=== PATIENT | male | born 1960 | race Two or more races ===

== ENCOUNTER 2025-06-12 08:05 | Inpatient (IN) | payer BC, OTHER ==
[2025-06-12] VITALS (15 sets, daily range): BP systolic 89–140; BP diastolic 62–93; PULSE 77–98; RESP 11–20; TEMP 97.3–98.7; O2SAT 13–100
[~2025-06-12] VITALS: Ht 180.3 cm; Wt 97.9 kg
--- NOTE | 2025-06-12 08:38 | DVHINCON2 ---
Date of service: Jun 12, 2025 History of Present Illness 65 yo M seen me in office for sob, found to have new onset afib/flutter and having active chest pain. pt was admitted for ACS rule out and afib management. he was started on doac 1-2 days ago. Past Medical History reviewed Allergies: Coded Allergies: NO KNOWN ALLERGIES (Unverified , 06/12/25) Review of Systems 10 pt ros otherwise negative Vital Signs Vital Signs Date Time Temp Pulse Resp B/P (MAP) Pulse Ox O2 Delivery O2 Flow Rate FiO2 06/12/25 08:12 93 06/12/25 08:11 98.2 16 140/81 97 98.2 Physical Exam nad s1 s2 irregular tachycardic ctab soft nt/nd no edema Assessment afib rvr chest pain r/o acs atrial flutter ckd htn HL obesity Plan/Recommendation recommend admit to hospital start doac amiodarone Wade guided dccv pt agrees to plan possible stress mpi Plan discussed with: Patient CARLA COONEY MD Jun 12, 2025 08:38
--- NOTE | 2025-06-12 08:40 | ED.PDOC ---
HPI Comments 65 year old male PMHx HTN, DM, a-fib, sleep apnea presents to the ED with a chief complaint of chest pain onset today (06/12/25) around 05:00. Patient states he began experiencing palpitations about 6 months ago, began seeing Dr. Wing about 4 months ago, had a heart monitor placed due to HR going from 60- 150. Patient had an appointment with Dr. Wing 3 days ago, medication was changed, advised to go to ED if any symptoms worsened. Patient woke up this morning around 05:00 experiencing chest pain, described as a pressure sensation, radiating to LT arm as well as shortness of breath. Denies nausea, vomiting, diarrhea, abdominal pain, dizziness, fever, chills, cough, cold, congestion, headache, blurred vision. No other symptoms or modifying factors present at this time. Chief Complaint: Chest Pain Time Seen by MD: 08:25 Reviewed Notes: Medications, Allergies Allergies: Coded Allergies: NO KNOWN ALLERGIES (Unverified , 06/12/25) Information Source: Patient, Spouse Mode of Arrival: Ambulatory Severity: Moderate Timing: Hours Duration: Since onset Prehospital treatment: None Location: Chest (L) Radiation: Arm (L) Quality: Pressure Onset: At Rest Cardiac Risk Factors: HTN, Diabetes PE Risk Factors: None Modifying Factors: Nothing Associated Signs and Symptoms: SOB Past Medical History PAST MEDICAL HISTORY: AFIB, DM, HTN Past Medical History (Other): sleep apnea Surgical History: Denies all surgeries Family History Family History: Family hx of heart debra Social History Smoker: Non-Smoker Alcohol: Occasionally Drugs: Denies Drug Use Lives In: Home Constitutional: denies: chills, diaphoresis, fatigue, fever, malaise, sweats, weakness, others EENTM: denies: blurred vision, double vision, ear bleeding, ear discharge, ear drainage, ear pain, ear ringing, eye pain, eye redness, hearing loss, mouth pain, mouth swelling, nasal discharge, nose bleeding, nose congestion, nose pain, photophobia, tearing, throat pain, throat swelling, voice changes, others Respiratory: reports: shortness of breath; denies: cough, hemoptysis, orthopnea, SOB at rest, SOB with excertion, stridor, wheezing, others Cardiovascular: reports: chest pain; denies: dizzy spells, diaphoresis, Dyspnea on exertion, edema, irregular heart beat, left arm pain, lightheadedness, palpitations, PND, syncope, others Gastrointestinal: denies: abdomen distended, abdominal pain, blood streaked bowels, constipated, diarrhea, dysphagia, difficulty swallowing, hematemesis, melena, nausea, poor appetite, poor fluid intake, rectal bleeding, rectal pain, vomiting, others Genitourinary: denies: burning, dysuria, flank pain, frequency, hematuria, incontinence, penile discharge, penile sore, pain, testicle pain, testicle swelling, urgency, others Neurological: denies: dizziness, fainting, headache, left sided numbness, left sided weakness, numbness, paresthesia, pre-existing deficit, right sided num bness, right sided weakness, seizure, speech problems, tingling, tremors, weakness, others Musculoskeletal: reports: others (LT arm pain); denies: back pain, gout, joint pain, joint swelling, muscle pain, muscle stiffness, neck pain Integumetry: denies: bruises, change in color, change in hair/nails, dryness, laceration, lesions, lumps, rash, wounds, others Allergic/Immunocompromised: denies: Difficulty Healing, Frequent Infections, Hives, Itching, others Hematologic/Lymphatic: denies: anemia, blood clots, easy bleeding, easy bruising, swollen glands, others Endocrine: denies: excessive hunger, excessive sweating, excessive thirst, excessive urination, flushing, intolerance to cold, intolerance to heat, unexplained weight gain, unexplained weight loss, others Psychiatric: denies: anxiety, bipolar disorder, depression, hopeless, panic disorder, schizophrenia, sleepless, suicidal, others All Other Systems: Reviewed and Negative Physical Exam General Appearance: Moderate Distress HEENT: Normal ENT Inspection, Pharynx Normal, TMs Normal Neck: Full Range of Motion, Non-Tender, Normal, Normal Inspection Respiratory: Chest Non-Tender, Lungs Clear, No Accessory Muscle Use, No Respiratory Distress, Normal Breath Sounds Cardiovascular: Irregular, No Edema, No JVD, No Murmur, No Gallop Breast Exam: Deferred Gastrointestinal: No Organomegaly, Non Tender, No Pulsatile Mass, Normal Bowel Sounds, Soft Genitalia: Deferred Pelvic: Deferred Rectal: Deferred Extremities: No calf tenderness, Normal capillary refill, Normal inspection, Normal range of motion, Non-tender, No pedal edema Musculoskeletal : Apperance: Normal Neurologic: Alert, judicial reporter II-XII nml as Tested, Motor Weakness, Normal Affect, Normal Mood, No Sensory Deficits Cerebellar Function: Normal Reflexes: Normal Skin: Dry, Pallor, Warm Lymphatic: No Adenopathy EKG EKG : Pulse Rate (adult): 93 [place]: Normal Cardiac Rhythm: Afib ST: Nonsp Was a procedure done? Was a procedure done?: No CP Differential Dx Differential Diagnosis: Angina, CT, Pulmonary Embolus Differential Diagnosis: CHF Differential Diagnosis: Pericarditis X-Ray, Labs, Meds, VS Vital Signs Date Time Temp Pulse Resp B/P (MAP) Pulse Ox O2 Delivery O2 Flow Rate FiO2 06/12/25 08:58 84 06/12/25 08:40 93 06/12/25 08:12 93 06/12/25 08:11 98.2 89 16 140/81 97 98.2 Lab Test 06/12/25 10:20 06/12/25 09:03 Range/Units Troponin I High Sensitivity 8 9 </=54 ng/L White Blood Count 4.2 L 4.4-10.8 10^3/uL Red Blood Count 4.73 4.5-5.90 10^6/uL Hemoglobin 16.6 13.5-17.5 g/dL Hematocrit 46.6 41.0-53.0 % Mean Corpuscular Volume 98.5 80.0-100.0 fL Mean Corpuscular Hemoglobin 35.0 H 28.0-32.0 pg Mean Corpuscular Hemoglobin Concent 35.6 32.0-36.0 g/dL Red Cell Distribution Width 13.0 11.8-14.3 % Platelet Count 129 L 140-450 10^3/uL Mean Platelet Volume 6.5 L 6.9-10.8 fL Neutrophils (%) (Auto) 56.1 37.0-80.0 % Lymphocytes (%) (Auto) 32.6 10.0-50.0 % Monocytes (%) (Auto) 9.6 0.0-12.0 % Eosinophils (%) (Auto) 1.0 0.0-7.0 % Basophils (%) (Auto) 0.7 0.0-2.0 % Neutrophils # (Auto) 2.4 1.6-8.6 10 ^3/uL Lymphocytes # (Auto) 1.4 0.4-5.4 10 ^3/uL Monocytes # (Auto) 0.4 0-1.3 10 ^3/uL Eosinophils # (Auto) 0 0-0.8 10 ^3/uL Basophils # (Auto) 0 0-0.2 10 ^3/uL Nucleated Red Blood Cells 0.1 % Sodium Level 137 136-145 mmol/L Potassium Level 4.1 3.5-5.1 mmol/L Chloride Level 100 98-107 mmol/L Carbon Dioxide Level 27 20-31 mmol/L Anion Gap 10 5-15 Blood Urea Nitrogen Pending Creatinine Pending Glomerular Filtration Rate Calc Pending BUN/Creatinine Ratio Pending Serum Glucose Pending Calcium Level 9.5 8.7-10.4 mg/dL B-Type Natriuretic Peptide 103.95 0-100 pg/mL Current Medications Medications (Trade) Dose Ordered Sig/Reggie Route Start Time Stop Time Status Last Admin Aspirin 162 mg ONCE ONCE PO 06/12/25 08:30 06/12/25 08:31 DC 06/12/25 09:52 PROCEDURE(s): CXRP - CHEST PORTABLE IMPRESSION: No acute disease. Hep-Lock was established The patient was given aspirin 162 mg by mouth The patient's CBC is within normal limits. The BNP is 103.95 The chemistry panel is pending We did speak with Dr. Wing and the patient will be admitted at this time. The patient's troponin level x2 came back as negative The chemistry panel is within normal range At this time, the patient will be admitted Images Reviewed?: Images reviewed and evaluated by mt Time of 1ST Reevaluation: 08:55 Reevaluation 1ST: Unchanged Patient Education/Counseling: Diagnosis, Treatment, Prognosis Family Education/Counseling: Diagnosis, Treatment, Prognosis SEPSIS Sepsis Screen Date sepsis recognized/suspect: Jun 12, 2025 Time Sepsis recognized/suspect: 08 Recent Procedure: No On Antibiotic Therapy: No Respiratory Rate >20: No Heart Rate >90: No Temp<36 C (96.8 F) or >38.3 C: No SBP <90 or MAP <65 mmHG: No New Acute Mental Status Change: No Is the patient on CPAP, BIPAP,: No Physician Orders Electrocardigram (06/12/25 08:21) Electrocardigram (06/12/25 09:21) Chest Portable (06/12/25 08:27) Heplock Iv (06/12/25 08:27) [place] Clerk (06/12/25 08:27) Blood Pressure (06/12/25 08:27) Pulse Oximetry (06/12/25 08:27) Urinalysis (06/12/25 08:27) Echo Wade Complete (06/12/25 08:38) Basic Metabolic Panel (06/12/25 10:14) Allergies (06/12/25 10:45) Code Status (06/12/25 10:45) Oxygen Per Hour (06/12/25 10:45) Condition: Serious (06/12/25 10:45) Bedrest With Bathroom Privileg (06/12/25 10:45) Sequential Compression Device (06/12/25 ) Admit (06/12/25 11:01) Stat Ekg For Chest Pain (06/12/25 11:01) Notify Of Changes From Base (06/12/25 11:01) Jig Box Operator For 24 Hours (06/12/25 11:01) Emergency Dysrhythmia Protocol (06/12/25 11:01) Rhythm Strips Once Every Shift (06/12/25 11:01) Oxygen By Nasal Cannula (06/12/25 11:01) Vital Signs Date Time Temp Pulse Resp B/P (MAP) Pulse Ox O2 Delivery O2 Flow Rate FiO2 06/12/25 08:58 84 06/12/25 08:40 93 06/12/25 08:12 93 06/12/25 08:11 98.2 89 16 140/81 97 98.2 Laboratory Tests Test 06/12/25 09:03 White Blood Count 4.2 10^3/uL (4.4-10.8) L Medications Medications Dose Ordered Sig/Reggie Route Start Time Stop Time Status Last Admin Dose Admin Aspirin 162 mg ONCE ONCE PO 06/12/25 08:30 06/12/25 08:31 DC 06/12/25 09:52 Departure 1 Departure Time of Disposition: 10:14 Impression: Primary Impression: Acute myocardial ischemia Additional Impressions: Atrial fibrillation Qualified Codes: I48.91 - Unspecified atrial fibrillation Acute chest pain Disposition: 09 ADMITTED INPATIENT Admit to: Tele Condition: Fair Critical Care Note Critical Care Time?: Yes (45 min-critical care time only) Stability Stability form required: Yes Unstable for transfer: Telemetry monitoring (Telemetry monitoring required), ED Physician Assesment (Clinical assesment) Heart Score Heart Score: Heart Score Response (Comments) Value History Moderate Suspicious 1 EKG Repolarization Disturb 1 Age 45-64 1 Risk Factors >3 or Hx ASHD 2 Troponin Normal limit 0 Total 5 I personally scribed for ISIAH COVARRUBIAS MD ([email or web address]) on 06/12/25 at 08:40. Electronically submitted by Latha Valenzuela ([email or web address]). I personally scribed for ISIAH COVARRUBIAS MD ([email or web address]) on 06/12/25 at 09:11. Electronically submitted by Latha Valenzuela ([email or web address]). ISIAH COVARRUBIAS MD Jun 12, 2025 08:40
--- NOTE | 2025-06-12 09:03 | DVH ---
CHEST RADIOGRAPH Indication: cp Technique: Single frontal view of the chest was obtained COMPARISON: CHEST TWO VIEWS on DOS: 12/12/21 FINDINGS: Lines and Tubes: None Lungs: Clear Pleura: No effusion. No pneumothorax. Cardiomediastinal contours: Unremarkable Bones: Unremarkable IMPRESSION: No acute disease.
[2025-06-12 09:25] LABS: Hematocrit 46.6 % (41.0-53.0); Hemoglobin 16.6 g/dL (13.5-17.5); Mean Corpuscular Volume 98.5 fL (80.0-100.0); Nucleated Red Blood Cells % 0.1 %
[2025-06-12 09:29] LABS: Mean Corpuscular Hemoglobin 35.0 pg (28.0-32.0)
[2025-06-12] MEDS ORDERED: ACETAMINOPHEN 325 MG TAB PO PRN ×2 (10:45→11:15)
[2025-06-12] MEDS ORDERED: IPRATROPIUM BROM 0.5 MG/2.5ML INH SOL NEB PRN (10:45)
[2025-06-12] MEDS ORDERED: DEXTROSE (50%) 50ML SYRG IV PRN ×2 (10:45→11:15)
[2025-06-12] MEDS ORDERED: DOCUSATE SOD 100 MG CAP PO PRN ×2 (10:45→11:15)
[2025-06-12] MEDS ORDERED: SODIUM CHLORIDE 0.9% 1,000 ML IV SCH (10:45)
[2025-06-12] MEDS ORDERED: ALBUTEROL SULF 2.5 MG/0.5ML(0.5%) NEB SOLN NEB PRN (10:45)
[2025-06-12] MEDS ORDERED: HYDROcodone-ACET 5/325MG TAB PO PRN ×2 (10:45→11:15)
[2025-06-12] MEDS ORDERED: hydrALAZINE HCL 20 MG/ML VL IV PRN ×2 (10:45→11:15)
[2025-06-12] MEDS ORDERED: ONDANSETRON HCL 4 MG/2 ML VIAL IV PRN ×2 (10:45→11:15)
--- NOTE | 2025-06-12 11:02 | DVHHP2 ---
History of Present Illness Reason for Visit: Acute chest pain History of Present Illness The patient is a 65-year-old male with past medical history of AFib, diabetes mellitus, sleep apnea, and hypertension who presented to [facility] ED with complaint of chest pain. Patient reports that he has been experiencing p alpitations about 6 months ago, being followed by cardiology Dr. Wing about 4 months ago, had heart monitor placed due to irregular heart rate. Patient had an appointment with Dr. Wing 3 days ago, medication was changed, advised to go to ED if any symptoms worsened. Patient woke up this morning around 05:00 AM experiencing chest pain, described as pressure sensation, radiating to left arm as well as shortness of breath, getting worse that prompted this visit. Patient was seen and evaluated in the ED, laboratory data shows WBC 4.2, platelets 129, sodium 137, potassium 4.1, BUN 12, creatinine 0.87, GFR 96, glucose 146, sodium 9.5, troponin 9, BNP 103.95, blood pressure 140/81, heart rate 84, temperature 98.2 F, O2 saturation 97% on room air. Chest x-ray show no acute disease. Please see medication orders section in the computer. On my assessment, patient denied chest pain at this moment, no headache, dizziness, diaphoresis, shortness of breaths, no diarrhea, nausea, vomiting, fever, chills. Patient was admitted for further evaluation and medical management. Past Medical History AFIB, DM, HTN, Sleep apnea Past Surgical History Denies all surgeries Family History Reviewed, noncontributory to the management of this case. Past Social History The patient lives at home, denies smoking, alcohol or illicit drugs abuse. Review of Systems Constitutional: Yes: Weakness; No: Fever, Chills, Sweats, Malaise, Other Eyes: No: Pain, Vision change, Conjunctivae inflammation, Eyelid inflammation, Other, Redness ENT: No: Ear pain, Ear discharge, Nose pain, Nose discharge, Nose congestion, Mouth pain, Mouth swelling, Throat pain, Throat swelling, Other Respiratory: Shortness of breath; No: Cough, Dry, SOB with excertion, Wheezing, Hemoptysis, Pleuritic Pain, Sputum, Wheezing, Other Cardiovascular: Chest Pain, Palpitations; No: Orthopnea, Paroxysmal Noc. Dyspnea, Edema, Lt Headedness, Other Gastrointestinal: No: Nausea, Vomiting, Abdominal Pain, Diarrhea, Constipation, Melena, Hematochezia, Other Genitourinary: No Dysuria, No Frequency, No Incontinence, No Hematuria, No Retention, No Other Musculoskeletal: No: other, neck pain, shoulder pain, arm pain, back pain, hand pain, leg pain, foot pain Skin: No: Rash, Lesions, Jaundice, Bruising, Other Neurological: No: Weakness, Numbness, Incoordination, Change in speech, Confusion, Seizures, Other Allergies: Coded Allergies: NO KNOWN ALLERGIES (Unverified , 06/12/25) Medications Current Medications Medications Dose Ordered Sig/Reggie Route Start Time Stop Time Status Last Admin Dose Admin Atorvastatin Calcium 10 mg HS PO 06/12/25 22:00 UNV Atenolol 50 mg DAILY PO 06/13/25 10:00 UNV Hydralazine HCl 10 mg Q6HP PRN IV 06/12/25 10:45 UNV Albuterol 2.5 mg Q4HPRN PRN NEB 06/12/25 10:45 UNV Ipratropium Eldon 0.5 mg Q4HPRN PRN NEB 06/12/25 10:45 UNV Amlodipine Besylate 5 mg DAILY PO 06/13/25 10:00 UNV Diagnostic Test (Pha) 1 strip ACHS 06/12/25 11:30 UNV Insulin Human Regular HS SC 06/12/25 22:00 UNV Insulin Human Regular AC SC 06/12/25 11:30 UNV Dextrose 50 ml UD PRN IV 06/12/25 10:45 UNV Sodium Chloride 1,000 ml @ 60 mls/hr [id number] IV 06/12/25 10:45 UNV Acetaminophen/ Hydrocodone Bitart 1 tab Q4HP PRN PO 06/12/25 10:45 UNV Ondansetron HCl 4 mg Q4HP PRN IV 06/12/25 10:45 UNV Docusate Sodium 100 mg BIDPRN PRN PO 06/12/25 10:45 UNV Acetaminophen 650 mg Q6HP PRN PO 06/12/25 10:45 UNV Apixaban 5 mg BID PO 06/12/25 22:00 UNV Exam Vital Signs Vital Signs Date Time Temp Pulse Resp B/P (MAP) Pulse Ox O2 Delivery O2 Flow Rate FiO2 06/12/25 08:58 84 10/13/25 08:11 98.2 16 140/81 97 98.2 General Appearance: Alert, Oriented X3, Cooperative, No acute distress HEENT: Atraumatic, PERRLA, EOMI, Mucous membr. moist/pink Respiratory: Normal air movement Cardiovascular: Normal S1, Normal S2, No murmurs, Other (Irregular rate) Abdominal: Normal bowel sounds, Soft, No tenderness, No hepatospenomegaly, No masses Extremities: No clubbing, No cyanosis, No edema, Normal pulses, No tenderness/swelling Skin: No rashes, No breakdown, No significant lesion Neuro: Normal speech, Normal tone, Sensation intact, Cranial nerves 3-12 NL, Reflexes 2+, Other (Weakness) Psych/Mental Status: Mental status NL, Mood NL Labs/Xrays Labs Test 06/12/25 10:20 06/12/25 09:03 Range/Units White Blood Count 4.2 L 4.4-10.8 10^3/uL Red Blood Count 4.73 4.5-5.90 10^6/uL Hemoglobin 16.6 13.5-17.5 g/dL Hematocrit 46.6 41.0-53.0 % Mean Corpuscular Volume 98.5 80.0-100.0 fL Mean Corpuscular Hemoglobin 35.0 H 28.0-32.0 pg Mean Corpuscular Hemoglobin Concent 35.6 32.0-36.0 g/dL Red Cell Distribution Width 13.0 11.8-14.3 % Platelet Count 129 L 140-450 10^3/uL Mean Platelet Volume 6.5 L 6.9-10.8 fL Neutrophils (%) (Auto) 56.1 37.0-80.0 % Lymphocytes (%) (Auto) 32.6 10.0-50.0 % Monocytes (%) (Auto) 9.6 0.0-12.0 % Eosinophils (%) (Auto) 1.0 0.0-7.0 % Basophils (%) (Auto) 0.7 0.0-2.0 % Neutrophils # (Auto) 2.4 1.6-8.6 10 ^3/uL Lymphocytes # (Auto) 1.4 0.4-5.4 10 ^3/uL Monocytes # (Auto) 0.4 0-1.3 10 ^3/uL Eosinophils # (Auto) 0 0-0.8 10 ^3/uL Basophils # (Auto) 0 0-0.2 10 ^3/uL Nucleated Red Blood Cells 0.1 % B-Type Natriuretic Peptide 103.95 0-100 pg/mL PATIENT: LEXUS OCONNORACCT: [id number] UNIT: [id number] : 1960 LOC: ER ROOM / BED: / AGE / SEX: 65 / M ADM STATUS: REG ER SERVICE 6 ORDERING PHYSICIAN: ISIAH COVARRUBIAS MD PROCEDURE(s): CXRP - CHEST PORTABLE REASON: cp ORDER NUMBER(s): [id number], ACCESSION NUMBER(s): [id number] CHEST RADIOGRAPH Indication: cp Technique: Single frontal view of the chest was obtained COMPARISON: CHEST TWO VIEWS on DOS: 12/12/21 FINDINGS: Lines and Tubes: None Lungs: Clear Pleura: No effusion. No pneumothorax. Cardiomediastinal contours: Unremarkable Bones: Unremarkable IMPRESSION: No acute disease. SEPSIS Sepsis Screen Date sepsis recognized/suspect: Jun 12, 2025 Time Sepsis recognized/suspect: 08 Recent Procedure: No On Antibiotic Therapy: No Respiratory Rate >20: No Heart Rate >90: No Temp<36 C (96.8 F) or >38.3 C: No SBP <90 or MAP <65 mmHG: No New Acute Mental Status Change: No Is the patient on CPAP, BIPAP,: No Physician Orders Electrocardigram (06/12/25 08:21) Electrocardigram (06/12/25 09:21) Electrocardigram (06/12/25 11:21) Troponin-I Hs (06/12/25 09:24) Troponin-I Hs (06/12/25 11:24) Chest Portable (06/12/25 08:27) Heplock Iv (06/12/25 08:27) [place]accarat Manager (06/12/25 08:27) Blood Pressure (06/12/25 08:27) Pulse Oximetry (06/12/25 08:27) Urinalysis (06/12/25 08:27) Echo Wade Complete (06/12/25 08:38) Basic Metabolic Panel (06/12/25 10:14) [facility]Diabetes (06/12/25 Lunch) Atorvastatin (Lipitor) (06/12/25 22:00) Atenolol Tablet (Tenormin Tablet) (06/13/25 10:00) Hydralazine Injection (Apresoline Inject (06/12/25 10:45) Albuterol Medneb (Ventolin Medneb) (06/12/25 10:45) Ipratropium Medneb (Atrovent Medneb) (06/12/25 10:45) Amlodipine Tablet (Norvasc Tablet) (06/13/25 10:00) Glucose Blood (Accu-Chek Comfort Curve T (06/12/25 11:30) Insulin R (Human) (Insulin R) (06/12/25 22:00) Insulin R (Human) (Insulin R) (06/12/25 11:30) Dextrose 50% Syringe (06/12/25 10:45) Allergies (06/12/25 10:45) Code Status (06/12/25 10:45) Sodium Chloride 0.9% (06/12/25 10:45) Oxygen Per Hour (06/12/25 10:45) Hydrocodone-Acet 5/325mg Tab ([place]on 5/32 (06/12/25 10:45) Ondansetron Hcl (Zofran) (06/12/25 10:45) Docusate Sodium Capsule (Colace Capsule) (06/12/25 10:45) Complete Blood Count (06/13/25 04:00) Comprehensive Metabolic Panel (06/13/25 04:00) Condition: Serious (06/12/25 10:45) Acetaminophen Tablet (Tylenol Tablet) (06/12/25 10:45) Bedrest With Bathroom Privileg (06/12/25 10:45) Sequential Compression Device (06/12/25 ) Apixaban (Eliquis) (06/12/25 22:00) Vital Signs Date Time Temp Pulse Resp B/P (MAP) Pulse Ox O2 Delivery O2 Flow Rate FiO2 06/12/25 08:58 84 06/12/25 08:40 93 06/12/25 08:12 93 06/12/25 08:11 98.2 89 16 140/81 97 98.2 Laboratory Tests Test 06/12/25 09:03 White Blood Count 4.2 10^3/uL (4.4-10.8) L Medications Medications Dose Ordered Sig/Reggie Route Start Time Stop Time Status Last Admin Dose Admin Aspirin 162 mg ONCE ONCE PO 06/12/25 08:30 06/12/25 08:31 DC 06/12/25 09:52 162 MG Assessment/Plan Assessment/Plan Acute chest pain Acute myocardial ischemia Atrial fibrillation Unspecified atrial fibrillation Plan 1. Admit to telemetry unit 2. Breathing treatment 3. Pain control management 4. Management of fluids and electrolytes 5. Consultation for hospitalist 6. Diagnostic tests chest x-ray 7. DVT prophylaxis-on Eliquis 8. Repeat labs CBC, CMP in a.m. 9. Continue with current medical management 10. Treatment plan discussed with patient and RN. Patient verbalized understanding. Plan discussed with: Patient, Other (RN) My Orders Orders - CHELSEY PEARSON DNP Procedure Category Date Status Time Consistent DIET 06/12/25 Transmitted Carb(Ccho)Diabetes Lunch Atorvastatin (Lipitor) PHA 06/12/25 Logged 22:00 Atenolol Tablet PHA 06/13/25 Logged (Tenormin Tablet) 10:00 Hydralazine Injection PHA 06/12/25 Logged (Apresoline Inject 10:45 Albuterol Medneb PHA 06/12/25 Logged (Ventolin Medneb) 10:45 Ipratropium Medneb PHA 06/12/25 Logged (Atrovent Medneb) 10:45 Amlodipine Tablet PHA 06/13/25 Logged (Norvasc Tablet) 10:00 Glucose Blood PHA 06/12/25 Logged (Accu-Chek Comfort 11:30 Insulin R (Human) PHA 06/12/25 Logged (Insulin R) 22:00 Insulin R (Human) PHA 06/12/25 Logged (Insulin R) 11:30 Dextrose 50% Syringe PHA 06/12/25 Logged 10:45 Allergies CHRISTA 06/12/25 In Process 10:45 Code Status CODE 06/12/25 Transmitted 10:45 Sodium Chloride 0.9% PHA 06/12/25 Logged 10:45 Oxygen Per Hour RT 06/12/25 Transmitted 10:45 Hydrocodone-Acet PHA 06/12/25 Logged 5/325mg Tab (Sheldon 10:45 Ondansetron Hcl PHA 06/12/25 Logged (Zofran) 10:45 Docusate Sodium PHA 06/12/25 Logged Capsule (Colace 10:45 Complete Blood Count LAB 06/13/25 Verified 04:00 Comprehensive LAB 06/13/25 Verified Metabolic Panel 04:00 Condition: Serious CHRISTA 06/12/25 In Process 10:45 Acetaminophen Tablet PHA 06/12/25 Logged (Tylenol Tablet) 10:45 Bedrest With Bathroom CHRISTA 06/12/25 In Process Privileg 10:45 Sequential CHRISTA 06/12/25 In Process Compression Device Apixaban (Eliquis) PHA 06/12/25 Logged 22:00 Problem List: (1) Acute chest pain (2) Acute myocardial ischemia (3) Atrial fibrillation (4) Unspecified atrial fibrillation Date of Service: Jun 12, 2025 Billing Provider: CHELSEY PEARSON DNP Common Visit Codes: [id number] INP/OBS CARE (HIGH) CHELSEY PEARSON DNP Jun 12, 2025 11:02
[2025-06-12 11:04] LABS: Chloride 100 mmol/L (98-107); Potassium 4.1 mmol/L (3.5-5.1); Sodium 137 mmol/L (136-145)
[2025-06-12 11:05] LABS: Anion Gap 10 (5-15); Carbon Dioxide 27 mmol/L (20-31)
[2025-06-12 11:06] LABS: Calcium 9.5 mg/dL (8.7-10.4)
[2025-06-12 11:11] LABS: BUN/Creatinine Ratio 13.8 (10.0-20.0); Blood Urea Nitrogen 12 mg/dL (9-23)
[2025-06-12 11:12] LABS: Glucose 146 mg/dL (74-106)
[2025-06-12] MEDS ORDERED: MORPHINE SULFATE INJ 2 MG/ml SYRG IV PRN ×2 (11:15)
[2025-06-12] MEDS ORDERED: NITROGLYCERIN 0.4 MG SL TAB SL PRN ×2 (11:15)
[2025-06-12] MEDS ORDERED: InsuLIN REG 1unit/0.01ml Soln (100units/ml) SC SCH ×2 (11:30→22:00)
[2025-06-12] MEDS: ACCU-CHEK COMFORT CURVE STRIP VI SCH (11:30)
[2025-06-12] MEDS: InsuLIN REG 1unit/0.01ml Soln (100units/ml) SC SCH ×2 (11:30→21:50)
[2025-06-12] MEDS ORDERED: ACCU-CHEK COMFORT CURVE STRIP VI SCH (11:30)
[2025-06-12] MEDS: ENOXAPARIN SOD 100 MG/1 ML SYRINGE SC ONE (12:44)
[2025-06-12] MEDS: fentaNYL CITRATE 100 MCG/2 ML VL IV ONE (13:17)
[2025-06-12] MEDS: MIDAZOLAM HCL 2MG/2ML 2ml VIAL (1mg/ml) IV ONE (13:17)
[2025-06-12] MEDS: LIDOCAINE VISCOUS 2% 15ML UD PO ONE (13:17)
--- NOTE | 2025-06-12 13:25 | DVHOP2 ---
Operative Report Operative Report CARDIAC STOCKROOM COORDINATOR PROCEDURE REPORT [place], [place] Date of Service: 06/12/25 Geotechnical Laboratory Technician: Carla Cooney MD PROCEDURES PERFORMED: trans esophageal echocardiogram, conscious sedation <15 mins, doppler assesment complete MARY, DC cardioversion PREOPERATIVE DIAGNOSES: AFib POSTOP DIAGNOSIS: SR DESCRIPTION OF PROCEDURE: The patient or appropriate family signed informed consent understanding the risks, benefits and alternatives of the procedure, they wished to proceed. The patient was brought to the cardiac cleaning laborer in n.p.o. state. the patient was given 15 ml of oral viscous lidocaine. the patient was placed in a left lateral decubitus position with bite block in mouth. NExt conscious sedation was administered per cleaning laborer protocol with _2 _ mg of versed and __75_ mcg of fentanyl. Next a MARY probe was advanced to the mid esophagus with ease and multiple planar images obtained. At the completion of the procedure , probe was removed and there were no immediate complications. FINDINGS: Left Ventricle: Normal LV size and severe dysfunction LVEF estimated at 30% Right Ventricle: RV enlarged mild Left atrium: enlarged, Right atrium: normal Left atrial appendage: no thrombus noted, decreased velocity on PW monitoring Aortic valve: trileaflet valve, no severe or AI Mitral Valve: structurally normal, mild mitral regurg, no MS Tricuspid Valve: mild tricuspid regurgitaiton, no TS Pulmonic Valve: structurally normal, no severe PI or PS Interatrial septum: negative color flow for R to L shunt Ascending aorta: no severe plaquing Next we sync'ed to 200 J and 1 shock delivered with successful restorationist of Normal Sinus rhythm. CONCLUSIONS: 1. Successful MARY guided DCCV PLAN: cont doac cont amiodarone for now CARLA COONEY MD Jun 12, 2025 13:25
[2025-06-12] MEDS: SODIUM CHLORIDE 0.9% 1,000 ML IV SCH (14:10)
--- NOTE | 2025-06-12 19:59 | ECG ---
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
[2025-06-12] MEDS ORDERED: ZINC50TA7 PO (20:29)
[2025-06-12] MEDS ORDERED: VITATAB20 OR (20:29)
[2025-06-12] MEDS ORDERED: OMEG-20 PO (20:29)
[2025-06-12] MEDS ORDERED: AMLO1TAB21 PO (20:29)
[2025-06-12] MEDS ORDERED: SITA100T7 PO (20:29)
[2025-06-12] MEDS ORDERED: PANT1INJ3 PO (20:29)
[2025-06-12] MEDS ORDERED: ATE50T PO (20:29)
[2025-06-12] MEDS ORDERED: PHYT100T PO (20:29)
[2025-06-12] MEDS: BUDESONIDE (INHALATION) 0.5 MG/2 ML NEB NEB SCH (20:37)
[2025-06-12] MEDS: IPRATROPIUM BROM 0.5 MG/2.5ML INH SOL NEB PRN (20:37)
[2025-06-12] MEDS: ALBUTEROL SULF 2.5 MG/0.5ML(0.5%) NEB SOLN NEB PRN (20:37)
[2025-06-12] MEDS: ATORVASTATIN 20 MG TAB PO SCH (21:50)
[2025-06-12] MEDS: APIXABAN 5 MG TAB PO SCH (21:50)
[2025-06-12] MEDS: AMIODARONE HCL 200 MG TAB PO SCH (21:50)
[2025-06-12] MEDS ORDERED: APIXABAN 5 MG TAB PO SCH (22:00)
[2025-06-12] MEDS ORDERED: ATORVASTATIN 20 MG TAB PO SCH (22:00)
[2025-06-13] VITALS (8 sets, daily range): BP systolic 111–157; BP diastolic 65–91; PULSE 75–87; RESP 16–18; TEMP 36.4; O2SAT 95–100
[2025-06-13] MEDS ORDERED: REGADENOSON 0.4 MG/5 ML SYRG IV ONE (09:23)
[2025-06-13] MEDS: REGADENOSON 0.4 MG/5 ML SYRG IV ONE (09:34)
[2025-06-13] MEDS ORDERED: ATENOLOL 25 MG TAB PO SCH (10:00)
[2025-06-13] MEDS: ATENOLOL 25 MG TAB PO SCH (11:54)
--- NOTE | 2025-06-13 11:58 | DVHSR ---
APPROVED REPORT Exam: Nuclear Stress Test BMI: 0 Stress Test Details HR Max Heart Rate (APMHR): 156.853409 bpm Target HR (85% APMHR): 132.344431 bpm BP ECG Stress ECG Conclusion lvef 29% dilated LV moderate inferior infarct noted NM EXAM: Myocardial Perfusion REST/STRESS Imaging Protocol: Rest Tc-99m/Stress Tc-99m 1 day Resting Data Rest SPECT myocardial perfusion imaging was performed in supine position 60 minutes following the int ravenous injection of 11.2 mCi of Tc-99m Sestamibi. Time of rest injection: 07:43 Date: 06/13/2025 Time of rest imagin:43 Date: 06/13/2025 Pharmacologic Stress Pharmacologic stress test was performed by injecting Regadenoson 0.4 mg IV push followed by the intra venous injection of 31.4 mCi of Tc-99m Sestamibi. Time of stress injection: 09:35 Date: 06/13/2025 Time of stress imagin:35 Date: 06/13/2025 Administration Route: IV Administration Site: Left Arm Gated Stress SPECT was performed 60 minutes after stress injection. The images were gated to evaluate regional wall motion and calculate left ventricular ejection fracti on. Stress only was performed in the Supine position. Nuclear Conclusion Nuclear Findings: negative for ischemia lvef 29% dilated LV moderate inferior infarct noted
--- NOTE | 2025-06-13 12:09 | DVHPN2 ---
Progress Note Date Seen: Jun 13, 2025 Medical Necessity Reason Pt with a Central, PICC or Fol: No Objective vital signs Vital Sign Date Time Temp Pulse Resp B/P (MAP) Pulse Ox O2 Delivery O2 Flow Rate FiO2 06/13/25 11:54 79 132/84 06/13/25 09:00 97.6 18 95 97.6 06/13/25 05:46 Nasal Cannula* 3 32 Total Intake and Output 06/12/25 06/12/25 06/13/25 15:00 23:00 07:00 Intake Total 40 ml 240 ml 600 ml Balance 40 ml 240 ml 600 ml medications Current Medications Medications Dose Ordered Sig/Reggie Route Start Time Stop Time Status Last Admin Dose Admin Ipratropium [place] 0.5 mg Q4HPRN PRN NEB 06/12/25 11:15 06/13/25 05:46 0.5 MG Insulin Human Regular HS SC 06/12/25 22:00 06/12/25 21:50 4 UNITS Insulin Human Regular AC SC 06/12/25 11:30 06/13/25 06:11 3 UNITS Dextrose 50 ml UD PRN IV 06/12/25 11:15 Ondansetron HCl 4 mg Q4HP PRN IV 06/12/25 11:15 Morphine Sulfate 2 mg Q30M PRN IV 06/12/25 11:15 Sodium Chloride 1,000 ml @ 60 mls/hr [id number] IV 06/12/25 11:15 06/13/25 04:04 60 MLS/HR Atorvastatin Calcium 10 mg HS PO 06/12/25 22:00 06/12/25 21:50 10 MG Atenolol 50 mg DAILY PO 06/13/25 10:00 06/13/25 11:54 50 MG Hydralazine HCl 10 mg Q6HP PRN IV 06/12/25 11:15 Albuterol 2.5 mg Q4HPRN PRN NEB 06/12/25 11:15 06/13/25 05:46 2.5 MG Amlodipine Besylate 5 mg DAILY PO 06/13/25 10:00 06/13/25 11:53 5 MG Acetaminophen/ Hydrocodone Bitart 1 tab Q4HP PRN PO 06/12/25 11:15 Docusate Sodium 100 mg BIDPRN PRN PO 06/12/25 11:15 Acetaminophen 650 mg Q6HP PRN PO 06/12/25 11:15 Apixaban 5 mg BID PO 06/12/25 22:00 06/13/25 11:53 5 MG Nitroglycerin 0.4 mg Q5MINP PRN SL 06/12/25 11:15 Diagnostic Test (Pha) 1 strip ACHS 06/12/25 11:30 06/13/25 06:12 1 STRIP Budesonide 0.5 mg BID NEB 06/12/25 22:00 06/13/25 05:46 0.5 MG Amiodarone HCl 400 mg Q12HR PO 06/12/25 22:00 06/13/25 11:52 400 MG Examination: GENERAL:Abnormal, HEENT:Abnormal, LUNGS:Abnormal, CVS:Abnormal, ABDOMEN:Abnormal laboratory and microbiology Laboratory Tests 06/12/25 09:03 Test 06/12/25 09:03 Range/Units Serum Glucose 146 H 74-106 mg/dL Problem List/Assessment/Plan Problem List/Assessment/Plan atrial flutter---> SR inferior infarct severe chf cv cleared for dc home eliquis 5 mg po bid atenolol amiodarone add entresto for HF gdmt outpt fu Plan discussed with: Patient My Orders My Orders Orders - CARLA COONEY MD Procedure Category Date Status Time Amiodarone Tablet PHA 06/12/25 In Process (Cordarone Tablet) 22:00 Electrocardigram EKG 06/12/25 Logged 14:00 Consistent DIET 06/12/25 Transmitted Carb(Ccho)Diabetes Dinner Cardiolite Multiple NM 06/13/25 Taken 13:25 Date of Service: Jun 13, 2025 Billing Provider: CARLA COONEY MD Common Visit Codes: NOT BILLABLE CARLA COONEY MD Jun 13, 2025 12:09
--- NOTE | 2025-06-13 12:33 | DVHPN2 ---
Reviewed: Care Plan, H&P, Labs, Medications, Previous Orders, Radiology Changes from previous H/P or p: No Changes Eyes: No Pain, No Vision change, No Conjunctivae inflammation, No Eyelid inflammation, No Other, No Redness ENT: No Ear pain, No Ear discharge, No Nose pain, No Nose discharge, No Nose congestion, No Mouth pain, No Mouth swelling, No Throat pain, No Throat swelling, No Other Cardiovascular: Chest Pain, Palpitations; No Orthopnea, No Paroxysmal Noc. Dyspnea, No Edema, No Lt Headedness, No Other Respiratory: No Cough, No Dry; Shortness of breath; No SOB with excertion, No Wheezing, No Hemoptysis, No Pleuritic Pain, No Sputum, No Other Gastrointestinal: No Nausea, No Vomiting, No Abdominal Pain, No Diarrhea, No Constipation, No Melena, No Hematochezia, No Other Genitourinary: No Dysuria, No Frequency, No Incontinence, No Hematuria, No Retention, No Other Musculoskeletal: No other, No neck pain, No shoulder pain, No arm pain, No back pain, No hand pain, No leg pain, No foot pain Skin: No Rash, No Lesions, No Jaundice, No Bruising, No Other Objective Vitals Vital Signs Date Time Temp Pulse Resp B/P (MAP) Pulse Ox O2 Delivery O2 Flow Rate FiO2 06/13/25 11:54 79 132/84 06/13/25 10:00 95 Nasal Cannula 3.0 06/13/25 10:00 32 06/13/25 09:00 97.6 18 97.6 Intake/Output Intake and Output 06/13/25 07:00 Intake Total 880 ml Balance 880 ml Intake Oral 600 ml IV Total 280 ml # Voids 3 Medications Current Medications Medications Dose Ordered Sig/Reggie Route Start Time Stop Time Status Last Admin Dose Admin Ipratropium [place] 0.5 mg Q4HPRN PRN NEB 06/12/25 11:15 06/13/25 05:46 0.5 MG Insulin Human Regular HS SC 06/12/25 22:00 06/12/25 21:50 4 UNITS Insulin Human Regular AC SC 06/12/25 11:30 06/13/25 06:11 3 UNITS Dextrose 50 ml UD PRN IV 06/12/25 11:15 Ondansetron HCl 4 mg Q4HP PRN IV 06/12/25 11:15 Morphine Sulfate 2 mg Q30M PRN IV 06/12/25 11:15 Sodium Chloride 1,000 ml @ 60 mls/hr [id number] IV 06/12/25 11:15 06/13/25 04:04 60 MLS/HR Atorvastatin Calcium 10 mg HS PO 06/12/25 22:00 06/12/25 21:50 10 MG Atenolol 50 mg DAILY PO 06/13/25 10:00 06/13/25 11:54 50 MG Hydralazine HCl 10 mg Q6HP PRN IV 06/12/25 11:15 Albuterol 2.5 mg Q4HPRN PRN NEB 06/12/25 11:15 06/13/25 05:46 2.5 MG Amlodipine Besylate 5 mg DAILY PO 06/13/25 10:00 06/13/25 11:53 5 MG Acetaminophen/ Hydrocodone Bitart 1 tab Q4HP PRN PO 06/12/25 11:15 Docusate Sodium 100 mg BIDPRN PRN PO 06/12/25 11:15 Acetaminophen 650 mg Q6HP PRN PO 06/12/25 11:15 Apixaban 5 mg BID PO 06/12/25 22:00 06/13/25 11:53 5 MG Nitroglycerin 0.4 mg Q5MINP PRN SL 06/12/25 11:15 Diagnostic Test (Pha) 1 strip ACHS 06/12/25 11:30 06/13/25 06:12 1 STRIP Budesonide 0.5 mg BID NEB 06/12/25 22:00 06/13/25 05:46 0.5 MG Amiodarone HCl 400 mg Q12HR PO 06/12/25 22:00 06/13/25 11:52 400 MG Laboratory Results Laboratory Tests 06/12/25 09:03 Labs and/or images reviewed: Labs reviewed by me, Image(s) reviewed by me Assessment/Plan Assessment/Plan afib rvr status post cardioversion by MARY by Dr. Wing; continue Eliquis atenolol amiodarone Entresto chest pain r/o acs atrial flutter ckd htn HL Obesity Troponin negative times x 3 Patient cleared for discharge by Cardiology Plan discussed with: Patient Date of Service: Jun 13, 2025 Billing Provider: VIOLA VIRGEN MD Common Visit Codes: [id number] INP/OBS CARE(HIGH) VIOLA VIRGEN MD Jun 13, 2025 12:33
[2025-06-13] MEDS ORDERED: AMIO200T33 PO (12:36)
[2025-06-13] MEDS ORDERED: APIX5TAB PO (12:36)
[2025-06-13] MEDS ORDERED: SACU1TAB PO (12:37)
--- NOTE | 2025-06-13 12:41 | DVHDS2 ---
Discharge Summary Date of Admission Jun 12, 2025 at 11:01 Date of Discharge: Jun 13, 2025 Admitting Diagnosis Chest pain Wounds: Wade Labs/Diagnostic Data: Laboratory Results Test 06/13/25 12:18 06/12/25 10:20 06/12/25 09:03 POC Glucose 214 mg/dl (70-106) Troponin I High Sensitivity 8 ng/L (</=54) White Blood Count 4.2 10^3/uL (4.4-10.8) Red Blood Count 4.73 10^6/uL (4.5-5.90) Hemoglobin 16.6 g/dL (13.5-17.5) Hematocrit 46.6 % (41.0-53.0) Mean Corpuscular Volume 98.5 fL (80.0-100.0) Mean Corpuscular Hemoglobin 35.0 pg (28.0-32.0) Mean Corpuscular Hemoglobin Concent 35.6 g/dL (32.0-36.0) Red Cell Distribution Width 13.0 % (11.8-14.3) Platelet Count 129 10^3/uL (140-450) Mean Platelet Volume 6.5 fL (6.9-10.8) Neutrophils (%) (Auto) 56.1 % (37.0-80.0) Lymphocytes (%) (Auto) 32.6 % (10.0-50.0) Monocytes (%) (Auto) 9.6 % (0.0-12.0) Eosinophils (%) (Auto) 1.0 % (0.0-7.0) Basophils (%) (Auto) 0.7 % (0.0-2.0) Neutrophils # (Auto) 2.4 10 ^3/uL (1.6-8.6) Lymphocytes # (Auto) 1.4 10 ^3/uL (0.4-5.4) Monocytes # (Auto) 0.4 10 ^3/uL (0-1.3) Eosinophils # (Auto) 0 10 ^3/uL (0-0.8) Basophils # (Auto) 0 10 ^3/uL (0-0.2) Nucleated Red Blood Cells 0.1 % Sodium Level 137 mmol/L (136-145) Potassium Level 4.1 mmol/L (3.5-5.1) Chloride Level 100 mmol/L (98-107) Carbon Dioxide Level 27 mmol/L (20-31) Anion Gap 10 (5-15) Blood Urea Nitrogen 12 mg/dL (9-23) Creatinine 0.87 mg/dL (0.700-1.30) Glomerular Filtration Rate Calc 96 mL/min (>90) BUN/Creatinine Ratio 13.8 (10.0-20.0) Serum Glucose 146 mg/dL (74-106) Calcium Level 9.5 mg/dL (8.7-10.4) B-Type Natriuretic Peptide 103.95 pg/mL (0-100) Other Laboratory Tests 06/12/25 09:03 Brief Hx & Hospital Course: 65-year-old male with a history of atrial fibrillation CKD hypertension hypercholesterolemia obesity came in for chest pain and palpitations found to have atrial fibrillation with a RVR underwent cardioversion by senior financial Dr. Wing by WADE troponin negative patient feels better treated with the atenolol amiodarone Entresto and amlodipine patient's vital signs are stable cleared for discharge by senior financial discharged home. Prescription for Katie Calderon one Eliquis and amiodarone transmitted to pharmacy We will Follow up with his primary Dr and Dr. Wing Consults/Reason for consult Cardiology Dr. Wing Operations or Procedures Cardioversion by WADE Condition at Discharge: Fair Final Diagnosis/Problems List afib rvr status post successful cardioversion by WADE by Dr. Wing, placed on Eliquis and amiodarone and atenolol chest pain r/o acs atrial flutter ckd htn HL obesity Discharge Disposition: Home Discharge Instruct/Medications Diet: Cardiac 2g Na,low cholest Activity: Light activity Follow Up/Referral: Resume all previous home medications Use new medications as prescribed Follow up with the primary Dr and Dr. Wing in two weeks Medications: Entresto amiodarone Eliquis Transmitted to [facility] pharmacy Scheduled Amiodarone Hcl (Amiodarone Hcl), 200 MG PO BID Amlodipine Besylate (Amlodipine Besylate), 1 TAB PO DAILY, (Reported) Apixaban Base (Eliquis), 5 MG PO BID Atenolol (Tenormin Tablet), 1 TAB PO DAILY, (Reported) Sacubitril-Valsartan (Entresto 24-26 mg), 1 TAB PO BID Sitagliptin Phosphate (Januvia), 1 TAB PO DAILY, (Reported) Miscellaneous Medications [place]-3 Fatty Acids (Fish Oil), 1,000 MG PO, (Reported) Pantoprazole Sodium (Pantoprazole Sodium), 40 MG PO, (Reported) Phytonadione (Vitamin K), 1,000 MCG PO, (Reported) Vitamins A & D (Vitamin A & D), 1 OR, (Reported) Zinc Gluconate (Zinc), 50 MG PO, (Reported) 39 (Time taken for discharge summary 39 minutes) Discharge Statement: "Patient was advised to return to the ER or call 911 if any headaches, dizziness, shortness of breath, chest pain, abdominal pain, bleeding, fevers, or worsening of medical condition. Patient was counseled about treatment plan, medications, possible side effects, patientverbalized understanding. All questions were answered to the best of my ability. This discharge took greater then 30 minutes in planning, reviewing documentation, counseling the patient, and discussing with other team members." ASSESSMENT ASSESSMENT Hospital Course Improved Assessment afib rvr status post successful cardioversion by WADE by Dr. Wing, placed on Eliquis and amiodarone and atenolol chest pain r/o acs atrial flutter ckd htn HL obesity Date of Service: Jun 13, 2025 Billing Provider: VIOLA VIRGEN MD Common Visit Codes: 27128-FQL/OBS DISCH DAY >30min VIOLA VIRGEN MD Jun 13, 2025 12:41
--- NOTE | 2025-06-14 09:08 | ECG ---
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
--- NOTE | 2025-06-14 09:09 | ECG ---
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
== END 2025-06-13 15:39 | disposition home or self-care (01) | DRG 309 ==
LOC: ER 08:05 → OVERFLOW 11:01 → ER 11:02 → TELE-CENTR 19:45
PROVIDERS: ADMIT Family Medicine; ATTEND Family Medicine
PROC: 5A2204Z Restoration of Cardiac Rhythm, Single (ICD-10-PCS; principal; 2025-06-12)
PROC: B24BZZ4 Ultrasonography of Heart with Aorta, Transesophageal (ICD-10-PCS; 2025-06-12)
CPT/HCPCS: 36415; 71045; 78452; 80048; 82962; 83880; 84484; 85025; 93005; 93017; 93312; 94640; 96360; 96361; 99152; 99291; G0378; J1815; J2250